=== PATIENT | male | born 1985 | race Caucasian/White ===

== ENCOUNTER → 2019-06-08 | Outpatient (CLI) | payer OTHER ==
--- NOTE | 2019-06-12 01:06 | PATH ---
[facility] [place] [address] PATHOLOGY RPT PROCEDURE Name: NICKY CONTEH Room #: REG [facility] M..#: [id number] Admission: 06/08/19 Date of : 83 Discharge: Report #: [id number] Path Case #: [id number] [facility] Accession Number: [id number] . 01 Material submitted: . lymph node - RIGHT GROIN LYMPH NODE. Modifiers: right . 01 Clinician provided ICD-10: R59.0 . 01 Clinical history: . Lymphadenopathy, inguinal . 02 Diagnosis: Lymph node, right groin, needle core biopsy: - Minute fragments of lymphoid tissue and fibrous tissue with vascular congestion and crush artifact. Please see comment. (MIKEY:stacie; 06/10/2019) . . Special studies report received from [facility], [address] [place] [address], [address], [place], [address], on case [id number], labeled with their number [id number], dated 06/09/2019. . Flow Cytometry: Hematologic Neoplasia Assessment . Clinical History Localized enlarged lymph nodes . Indication for Study Evaluation for lymphadenopathy . Specimen Lymph Node, Right Groin . Viability 68% (7AAD exclusion) . Interpretation Lymph Node, Right Groin: - In the sample analyzed, there is no evidence for a B-cell lymphoma (limited study). . Comments Hodgkin lymphoma and some large cell lymphomas cannot be categorically excluded by flow cytometric analysis. A limited panel of antibodies was performed due to low cell yield. Correlation with the morphologic findings and other clinical data is recommended. [address] [address] PATHOLOGY RPT PROCEDURE Name: NICKY CONTEH Room #: REG Sharon Moya.#: [id number] Admission: 06/08/19 Date of : 83 Discharge: Report #: [id number] Path Case #: [id number] . Populations Analyzed Lymphocytes: 56% A limited panel of antibodies (kappa, lambda, CD3, CD4, CD5, CD8, CD10, CD19, CD20, CD38, CD45, and CD57) was performed due to low cell yield. There is a mixed population of B-lymphocytes (5%) and T-lymphocytes (51%). No B-cell surface light chain restriction is detected. T-cells express CD3 and CD5. Other rojas T-cell antigens are not evaluated. The CD4:CD8 ratio is normal at 5.2:1. CD45 Negative 44% No significant reactivity with the markers tested Events/Debris: (may represent degenerated cells, unlysed red blood cells, debris, etc.) . . Morphologic Evaluation A slide was reviewed for air quality chemist purposes only. . Specimen Description Total Cell Yield: 0.09 X 10 and 6 . Reagent(s) Used CD3, CD4, CD5, CD8, CD10, CD19, CD20, CD38, CD45, CD57, kappa, lambda . at [facility]. Brittny Moreno MD Hematopathologist . . Intended Use Flow cytometry is optimally used to immunophenotypically characterize abnormal populations when they are detected. Negative flow cytometry results do not exclude lymphoma or neoplasia. Possible false negative flow cytometry results may occur in, but are not limited to, the following: neoplastic cells in Hodgkin lymphoma are not typically adequately represented by routine clinical flow cytometry; neoplastic cells may be lost or inadequately represented due to degeneration, sample processing, sampling artifact, or patchy involvement; plasma cells are typically underrepresented by flow cytometry; immature cells/blasts may be underrepresented due to hemodilution; myeloproliferative disorders and low grade myelodysplasia may not have immunophenotypic abnormalities or increased blasts. Correlation with all available clinical, laboratory, and morphologic data is always necessary to assess for the possibility of false negative flow cytometry results and to establish a diagnosis. Each marker in this analysis was used to assess for potential antigenic abnormalities or to evaluate detected abnormalities. . [address] [address] PATHOLOGY RPT PROCEDURE Name: NICKY CONTEH Room #: REG [facility] Noonan#: [id number] Admission: 06/08/19 Date of : 83 Discharge: Report #: [id number] Path Case #: [id number] Disclaimer(s) This test was performed at [facility]. at [address], [place], [address] - Counter Manager: Arron Pond MD. [facility] is a business unit of [employer] a wholly-owned subsidiary of [employer]. . Any image or images that accompany this report are provider relations representative images only and should not be used to render a diagnosis. . This test was developed and its performance characteristics determined by [facility]. It has not been cleared or approved by the Food and Drug Administration (FDA). The FDA has determined that such clearance or approval is not necessary. . For inquiries, the physician may contact Lab: [phone] . A complete copy of the report is on file. . Professional services performed by [facility]. at [address], [place] [address]. Technical services performed by [facility]. at [address], [place] [address]. . (IUV:amj 06/10/2019) . AZJ 06/12/2019 0046 Local . 02 Comment: Examination of the right groin lymph node shows fibrous tissue and minute fragments of lymphoid tissue with vascular congestion and rare possible follicles. There are no definite Man-Deann cells, metastatic carcinoma or granulomas identified. Immunophenotypic studies by flow cytometry do not show evidence of a B-cell lymphoma in a limited study and sample analyzed (please see separate flow cytometry report from [facility], specimen ID [id number]). The findings suggest a reactive lymph node. However, it should be noted that partially involved lymph node by malignancy or Hodgkin lymphoma or reactive hyperplasia cannot be totally excluded due to sampling artifact. Excision of the lymph node is recommended if clinically suspicious. (MIKEY:stacie; 06/10/2019) . Co-review: Dr. Mallorie Rowan . 02 Electronically signed: . Yasmin Winston MD, Pathologist [address] [address] PATHOLOGY RPT PROCEDURE Name: NICKY CONTEH Room #: REG [facility].#: [id number] Admission: 06/08/19 Date of : 83 Discharge: Report #: [id number] Path Case #: [id number] NPI- [id number] . 01 Gross description: . The specimen is received in formalin, labeled "Nicky Conteh, right groin lymph node". Received are several minute fragments of pale nicole soft tissue measuring 0.3 x 0.3 x 0.1 cm in aggregate dimensions. The specimen is filtered and entirely submitted in cassette A1. A portion of the specimen is received in RPMI solution and is forwarded on for flow cytometry studies. (CAA; 06/08/2019) QAC/QAC 06/08/2019 1548 Local . 02 Pathologist provided ICD-10: R59.1 . 02 CPT . 152463 Specimen Comment: A courtesy copy of this report has been sent to Specimen Comment: [phone]. Specimen Comment: Report sent to Performed at: 01 [facility] [address] [facility] [address], [place] [id number] MD Isidro Deluna MD Phone: [phone] Performed at: 02 [facility] [address] [place] [id number] MD Yasmin Winston MD Phone: [phone]
== END | disposition home or self-care (01) ==
LOC: ULTRA 07:15
DX: R59.0 Localized enlarged lymph nodes (principal)